=== PATIENT | male | born 1990 | race African-American/Black ===

== ENCOUNTER 2017-06-16 04:09 | Emergency (ER) | payer OTHER ==
[~2017-06-16] VITALS: Ht 177.8 cm; Wt 70.0 kg
[2017-06-16 04:16] VITALS: TEMP 37.2; Ht 177.8 cm; Wt 70.0 kg
[2017-06-16] MEDS ORDERED: IBUPROFEN 600 MG TAB PO STA (04:28)
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
[2017-06-16] MEDS ORDERED: ACETAMINOPHEN 500 MG TAB PO STA (05:09)
[2017-06-16 05:17] VITALS: BP 139/87; PULSE 86; O2SAT 98
== END 2017-06-16 05:23 | disposition home or self-care (01) ==
LOC: EDBD 04:09 → C.EDB 04:12
DX: R51 Headache (principal); S60.511A Abrasion of right hand, initial encounter; V68.5XXA Driver of heavy transport vehicle injured in noncollision transport accident in traffic accident, initial encounter; Y93.89 Activity, other specified; Y92.411 Interstate highway as the place of occurrence of the external cause